=== PATIENT | female | born 1990 | race Caucasian/White ===

== ENCOUNTER 2025-01-19 03:55 | Emergency (ER) | payer OTHER, SELFPAY ==
[2025-01-19 04:01] VITALS: BP 142/87; PULSE 107; RESP 18; TEMP 36.4; O2SAT 100; BMI 21.8
--- NOTE | 2025-01-19 04:39 | PC.NURSE ---
pt complaining of neuro symptoms. cms positive and pedal pulse. Nuero intact, Notified Dr Good.
--- NOTE | 2025-01-19 04:40 | ED_ITS ---
HPI - General Adult General Chief complaint: General Medical Stated complaint: General Medical Time Seen by Provider: 01/19/25 04:40 Source: patient Mode of arrival: wheelchair Limitations: no limitations History of Present Illness ED Provider: Dr. Liya Bowers HPI narrative: Chief he 34-year-old female history of anxiety depression presenting with tremulousness, difficulty breathing and swallowing ongoing for the last 4 months. Admits that tonight she got up to go to use the restroom and noticed that she was having some difficulty swallowing her secretions. Began to panic and hyperventilate. Was seen at the economic development manager and had an endoscopy performed and was told that she probably had eosinophilic esophagitis. Admits that her follow-up appointment is not for another 2 weeks and she is extremely anxious about it. Denies associated fever, chest pain, abdominal pain, bowel changes or urinary complaints. Last menstrual cycle was last week. Had been feeling relatively well prior to this. States that she ran out of her lorazepam which tends to help her anxiety. Related Data Previous Rx's ?Medication ?Instructions ?Recorded Magic Mouthwash 5 ml PO TID PRN throat pain #240 mL 01/19/25 Diphen/Lido/Antacid 1:1:1 240 mL suspension famotidine 40 mg/5 mL (8 mg/mL) 20 mg (2.5 mL) PO BID #100 mL 01/19/25 oral suspension lorazepam 2 mg/mL oral concentrate 1 mg (0.5 mL) PO TI D PRN anxiety 01/19/25 (Lorazepam Intensol) #10 mL Allergies Allergy/AdvReac Type Severity Reaction Status Date / Time amoxicillin Allergy Hives Verified 01/19/25 04:09 Review of Systems 2 Review of Systems: as per HPI, full review of systems performed and negative but for the above mentioned pertinent positives and negatives. PMFSH Social History Social History Smoked in Last 30 Days: No Use of substances other than those prescribed or required for medical reasons: No Advance Directives: No Advance Directives Information Provided: Yes Physical Exam ED Exam Exam: GENERAL: Anxious, tearful. SKIN: Normal skin color for ethnicity, warm, dry, intact, no rashes noted. HEENT: Normocephalic, atraumatic, no stridor, posterior oropharynx nonerythematous, dentition intact, EOMI. NECK: Soft, supple, full ROM, midline structures nontender, no step-offs, no deformities, no lymphadenopathy. CHEST: Heart regular tachycardia, no murmurs, symmetric chest rise and fall, no crepitus. PULMONARY: Clear to auscultation bilaterally, no labored breathing, no wheezes/rhales/ rhonchi. ABDOMINAL: Soft, nondistended, nontender, positive bowel sounds in all quadrants. : Deferred. MUSCULOSKELETAL: Normal tone, full range of motion, no deformities, no peripheral edema. NEURO: Alert and oriented x3, CN II through XII intact, equal strength and sensation bilateral upper and lower extremities, no focal neurologic deficits. PSYCHIATRIC: Anxious affect, tearful, fluid speech, good eye contact and appropriate demeanor. Vital Signs: Vital Signs - 24 hr 01/19/25 04:01 Temperature 97.5 F Pulse Rate 107 H Respiratory Rate 18 Blood Pressure 142/87 H Pulse Oximetry 100 Oxygen Delivery Method Room Air BMI result Body Mass Index 21.8 Medications Administered Discontinued Medications Generic Name Dose Route Start Last Admin Trade Name Freq PRN Reason Stop Dose Admin Diazepam 5 mg 01/19/25 04:49 01/19/25 05:00 Diazepam 10 Mg/2 Ml Cartridge IVPUSH 01/19/25 04:50 5 mg STAT STA Administration Famotidine 20 mg 01/19/25 04:49 01/19/25 05:01 Famotidine/Pf 20 Mg/2 Ml Vial IVPUSH 01/19/25 04:50 20 mg ONCE ONE Administration Lactated Ringer's 1,000 mls @ 999 mls/hr 01/19/25 04:49 01/19/25 06:09 Lr IV 01/19/25 05:49 Infused .Q1H1M ONE Infusion Magnesium Sulfate 2 gm in 50 mls @ 150 mls/hr 01/19/25 05:51 01/19/25 06:31 Magnesium Sulfate/H2o IV 01/19/25 06:10 Infused ONCE ONE Infusion Potassium Chloride 40 meq 01/19/25 05:49 01/19/25 06:09 Potassium Chloride Packet 20 Meq Packet PO 01/19/25 05:50 40 meq ONCE ONE Administration Medical Decision Making Medical Decision Making MDM Narrative: 34-year-old female with history of dysphagia ongoing for the last several months. She has no diagnosis yet but was told that it is probably EOE. Clinically appears well but is very anxious, tearful, crying and I think that this is more anxiety driven than anything. Also probably related to acid reflux and I discussed this with her at length. Her workup today is reassuring. Plan for magic mouthwash, antacids and as planned follow-up with her economic development manager Differential Diagnosis Differential Diagnoses: The differential diagnosis associated with the presentation includes (as above) Admission/Observation Consideration of admission/observation: Escalation of care including admission/observation considered Lab Data MDM Lab Attestation statement: I reviewed the patient's lab results. 01/19/25 04:58 01/19/25 04:58 Labs: Lab Results 01/19/25 Range/Units 04:58 WBC 7.0 (4.8-10.8) X10*3/uL RBC 4.62 (4.20-5.50) X10*6/uL Hgb 14.5 (12.0-16.0) g/dl Hct 39.8 (37.0-47.0) % MCV 86.1 (80.0-98.0) fL MCH 31.4 (27.0-33.0) pg MCHC 36.4 H (31.0-35.0) g/dl RDW 12.4 (11.0-16.0) % Plt Count 287 (160-400) X10*3/uL MPV 9.2 L (9.4-12.3) fL Immature Gran % (Auto) 0.1 (0.0-0.4) % Neut % (Auto) 75.8 H (45-73) % Lymph % (Auto) 15.0 L (20-40) % Callahan % (Auto) 8.3 (2-11) % Eos % (Auto) 0.7 (0-4) % Baso % (Auto) 0.1 (0-2) % Lymph # (Auto) 1.1 L (1.2-4.9) X10*3/uL Callahan # (Auto) 0.6 (0.1-1.2) X10*3/uL Eos # (Auto) 0.1 (0.0-0.4) X10*3/uL Baso # (Auto) 0.0 (0.0-0.2) X10*3/uL Abs Immat Gran (auto) 0.01 (0.00-0.03) X10*3/uL Absolute Neuts (auto) 5.3 (2.0-8.3) x10*3/uL Absolute Nucleated RBC 0.000 (0.0-0.012) X10*3/uL Nucleated RBC % (auto) 0.0 (0.0-0.2) /100WBC Sodium 140 (135-145) mmol/L Potassium 3.1 L (3.3-5.1) mmol/L Chloride 104 (96-108) mmol/L Carbon Dioxide 23 (22-29) mmol/L Anion Gap 16 (12-20) BUN 5 L (9-16) mg/dL Creatinine 0.59 (0.5-1.4) mg/dL Estim Creat Clear Calc 125.7 Estimated GFR > 60 Random Glucose 117 H (60-115) mg/dL Calcium 9.7 (8.4-10.2) mg/dL Magnesium 1.7 (1.6-2.6) mg/dL Total Bilirubin 0.5 (0.0-1.0) mg/dL AST 33 H (5-31) U/L ALT 25 (0-31) U/L Alkaline Phosphatase 73 (39-117) U/L Total Protein 7.8 (6.5-8.0) g/dL Albumin 4.6 (3.5-5.0) g/dL Lipase 38 (8-78) U/L TSH 1.36 (0.32-4.0) uIU/mL Urine Color Yellow Urine Appearance Clear Urine pH 7.0 (5.0-9.0) Ur Specific Half [address] <= 1.005 (1.005-1.025) Urine Protein Negative (Neg-Trace) mg/dL Urine Glucose (UA) Negative (Negative) mg/dL Urine Ketones 15 (Negative) mg/dL Urine Blood Negative (Negative) Urine Nitrite Negative (Negative) Ur Leukocyte Esterase Negative (Negative) Independent Interpretation I performed an independent interpretation of an: EKG Interpretation: My independent interpretation of the ECG reveals normal sinus rhythm with rate of 90, normal axis, normal intervals, no ST elevations or depressions to suggest ischemic changes, no previous for comparison. Independent Historian Clinical information obtained from an independent historian. History obtained from or confirmed by: Friend Prescription Management I considered prescription management with: Pain Medication and Other (magic mouthwash) Social Determinants Patient?s care significantly limited by Social Determinants of Health including: Problems related to primary support group and Other Social Determinant of Health Discharge Plan Discharge Clinical Impression: Hypokalemia, Hypomagnesemia, Decreased oral intake, Esophagitis Patient Disposition: Home, Self-Care Instructions: Potassium Content of Foods List (ED), Hypokalemia (ED), Esophagitis (ED) Additional Instructions: Use famotidine every day for acid reflux. You may also use magic mouthwash to help with the painful swallowing. Use lorazepam for anxiety attacks and feeling like her heart is racing. Make sure to take in plenty of fluids and try to drink electrolyte solutions and milk shakes to keep your potassium and magnesium levels elevated. Return to the ER with any new or worsening symptoms. Continue to follow up with your economic development manager as discussed. Prescriptions: New famotidine 40 mg/5 mL (8 mg/mL) suspension for reconstitution 20 mg PO BID Qty: 100 0RF Magic Mouthwash Diphen/Lido/Antacid 1:1:1 240 mL suspension 5 ml PO TID PRN (Reason: throat pain) Qty: 240 0RF Rx Instructions: Lidocaine Viscous 2 % 80mL; diphenhydramine 12.5 mg/5 mL 80mL; aluminum-mag hydrox-simeth [id number]/5mL 80mL lorazepam [Lorazepam Intensol] 2 mg/mL concentrate 1 mg PO TID PRN (Reason: anxiety) Qty: 10 0RF Interventions: ED Discharge Assessment Last Done: 01/19/25 08:22 Discharge Date/Time: 01/19/25 08:23 Print Language: Pashto
--- NOTE | 2025-01-19 04:51 | ECG_ITS ---
Test Reason : AMS Blood Pressure : */* mmHG Vent. Rate : 90 BPM Atrial Rate : 90 BPM P-R Int : 146 ms QRS Dur : 82 ms QT Int : 360 ms P-R-T Axes : 62 23 7 degrees QTcB Int : 440 ms Normal sinus rhythm Nonspecific ST abnormality Abnormal ECG No previous ECGs available Referred By: Liya Bowers Electronically Signed By: VIRGINIA OLEARY MD
[2025-01-19] MEDS: diazePAM 10 MG/2 ML CARTRIDGE 5 MG IVPUSH (05:00)
[2025-01-19] MEDS: Lactated Ringers 1,000 ML 999 ML IV (05:01)
[2025-01-19 05:02] LABS: MANUAL DIFF FLAG NO
[2025-01-19 05:03] LABS: Hematocrit 39.8 % (37.0-47.0); Hemoglobin 14.5 g/dl (12.0-16.0); Imm Gran Abs Auto 0.01 X10*3/uL (0.00-0.03); Imm Gran Pct Auto 0.1 % (0.0-0.4); Lymphocytes Absolute Auto 1.1 X10*3/uL (1.2-4.9); Mean Corpuscular HGB Conc 36.4 g/dl (31.0-35.0); Mean Corpuscular Hemoglobin 31.4 pg (27.0-33.0); Mean Corpuscular Volume 86.1 fL (80.0-98.0); NRBC Abs Auto 0.000 X10*3/uL (0.0-0.012); NRBC Pct Auto 0.0 /100WBC (0.0-0.2); Platelet Count 287 X10*3/uL (160-400); Red Blood Count 4.62 X10*6/uL (4.20-5.50); White Blood Count 7.0 X10*3/uL (4.8-10.8)
[2025-01-19 05:05] LABS: Appearance Urine Clear; Glucose Urine UA Negative (Negative); PH 7.0 (5.0-9.0); Specific Gravity - Urine <= 1.005 (1.005-1.025)
--- NOTE | 2025-01-19 05:16 | PC.NURSE ---
pt medicated per mar.
[2025-01-19 05:23] LABS: Alanine Aminotransferase 25 U/L (0-31); Albumin Level 4.6 g/dL (3.5-5.0); Alkaline Phosphatase 73 U/L (39-117); Anion Gap 16 (12-20); Aspartate Amino Transferase 33 U/L (5-31); Blood Urea Nitrogen 5 mg/dL (9-16); Calcium 9.7 mg/dL (8.4-10.2); Carbon Dioxide 23 mmol/L (22-29); Chloride 104 mmol/L (96-108); Creatinine Clr Calc Pharmacy 125.7; Estimated Glomerular Filt Rate > 60; Lipase 38 U/L (8-78); Magnesium 1.7 mg/dL (1.6-2.6); Potassium 3.1 mmol/L (3.3-5.1); Sodium 140 mmol/L (135-145); Total Protein 7.8 g/dL (6.5-8.0)
--- OUTSIDE RECORDS SUMMARY | 2025-01-19 05:30 | XMS_ITS ---
Author Name [facility] Organization Unknown Care Team Organization Name Specialty Phone Email Start Date End Da te [facility] Arina [facility] 12/20/2022 024 [facility] Roman Burris [facility] 02/20/202211/13
--- OUTSIDE RECORDS SUMMARY | 2025-01-19 05:30 | XMS_ITS | Clinical Summary ---
Author Organization [facility] [address] [place] [address] [place] [phone] Phone Care Team Providers Care Stereo Equipment Repairer Name Role Phone Arina Stockton MD Primary Care Provider [phone] Allergies Active Allergy Reactions Criticality Noted Date Comments Amoxicillin 05/12/2020 Other Reaction(s): Hives/Urticaria Medications fluticasone propionate (FLONASE) 50 mcg/actuation nasal spray 2 Sprays by Nasal route daily. 4 Active cyclobenzaprine (FLEXERIL) 5 mg tablet Take 1 tablet (5 mg total) by mouth at bedtime as needed for muscle spasms. 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 Overview (04/06/2024): Pedi endo 08/20 - euthyroid, to be rechecked q 6 mos, or prn with sx (last checked 03/23) 12/14 TSH 1.42 Idiopathic scoliosis 10/14/2006 Overview (04/06/2024): 10 deg on xray 11/18[place] [facility] [place] to [place] pain, muscular, resolved 7 deg on xray 01/18 at [facility] Anesthesia consult in - Order placed 07/11 Kept apt- states clear to deliver at [facility] Date Type Department Care Team Description 01/04/2025 Telephone Gastroenterology [facility] [address] [phone] Ortiz Lockwood MD 12/24/2024 7:32 AM EDT Anesthesia Event [facility] Endoscopy [address] [place] [phone] Mp Funk MD 12/24/2024 6:48 AM EDT - 12/24/2024 11:59 PM EDT Hospital Encounter [facility] Endoscopy [address] [place] [phone] Ortiz Lockwood MD Elliott, Barbara J, CRNA Dasilva, John E, MD Dysphagia; Globus sensation Discharge Disposition: Home or Self Care 12/17/2024 12:40 PM EDT Consult Gastroenterology [address] [phone] Ortiz Lockwood MD Esophageal dysphagia (Primary Dx) 12/15/2024 Telephone Gastroenterology [facility] 175 [facility] [address] [phone] Ortiz Lockwood MD 12/07/2024 3:07 PM EDT - 12/07/2024 11:59 PM EDT Hospital Encounter [facility] [address] [place] [address] Paresthesia of right arm Discharge Disposition: Home or Self Care 12/07/2024 3:00 PM EDT - 12/07/2024 11:59 PM EDT Hospital Encounter [facility] [address] [place], [place] [phone] Paresthesia of right arm Discharge Disposition: Home or Self Care 12/07/2024 2:45 PM EDT Office Visit Adult Medicine [address] [phone] Heather Richard PA Globus sensation (Primary Dx); Dysphagia, unspecified type; Paresthesia of right arm 10/22/2024 10:45 AM EDT Office Visit [address] [phone] Heather Richard PA Globus sensation (Primary Dx); Dry mouth; Elevated blood pressure reading from Last 3 Months Immunizations Immunization Administration Dates Next Due DTP 12/21/1994, 2,1990,07/02,1990 [id number] (Pentacel) 2mo to less than 5yo 11/24/1991,1990,1990,05/15 HPV, Quadrivalent 08/28/2007,04/22/2007,02/14/20 07 Hepatitis B Pediatric (Enger ix B; Recombivax HB) to less than 20 yo 03/09/1996,08/20/1995,07/23/1995 Influenza trivalent, 0.5mL, preservative free (Fluarix; FluLaval; Fluzone) ages 6mo and older (Afluria) 3 years and older 01/05/2015,01/03/2010 MMR, measles mumps and rubel la Live (Priorix; M-M-R II) 12mo and older 12/21/1994,11/24/1991 Meningococcal MCV4P 09/11/2005 OPV 12/21/1994, 2,1990,05/15 Td Tetanus diptheria (Tdvax) 7yo and older 09/01/2001 Tdap Tetanus diptheria acell ular pertussis (Boostrix; Adacel) 7yo and older 10/31/2020,03/29/2015,02/13/2007 Surgical History Surgery Date Site/Laterality Comments APPENDECTOMY 05/10/2020 PROCEDURE: LAPAROSCOPIC APPENDECTOMY; COMMENT: no complications Medical History Medical History Date Comments Varicella without mention of complication 03/15/1992 DX:Varicella without mention of complication Unspecified otitis media 06/13/1994 DX:Unsp ecified otitis media Closed fracture of unspecifi ed phalanx or phalanges of hand 07/14/2002 DX:Closed fracture of uns pecified phalanx or phalanges of hand; COMMENT: r 5th finger Unspecified otitis media 06/13/1994 DX:Unsp ecified otitis media H/O Joan thyroiditis DX:H/O Joan thyroiditis GERD (gastroesophageal reflu x disease) Family History Medical History Relation Name Comments Multiple sclerosis Brother 1 Heart attack Father age 54 Other: abnormal pap Mother Colon cancer Neg Hx Ovarian cancer Neg Hx Uterine cancer Neg Hx Relation Name Status Comments Brother 1 Alive Brother 2 Alive Father Maternal Grandfather Maternal Grandmother Alive Mother Alive Paternal Grandfather Alive Paternal Grandmother Alive Sister Alive Social History Tobacco Use Types Packs/Day Years Used Date Smoking Tobacco: Never Smokeless Tobacco: Never Tobacco Cessation:Counseling Given: Not Answered Alcohol Use Standard Drinks/Week Comments No 0 (1 standard drink = 0.6 oz pur e alcohol) Housing Instability Answer Date Recorde d Are you worried that in the next 2 months you may not have stable housing? No 05/28/2024 Food Access & Nutrition Answer Date Rec orded Do you have access to a vari ety of food including fruits and vegetables? Yes 05/28/2024 Access to Healthcare Answer Date Record ed Within the last 3 months, ho w many times did you visit the emergency department for your medical care? 0 05/28/2024 Health Literacy Answer Date Recorded How often do you need to hav e someone help you when you read instructions, pamphlets, or other written material from your doctor or pharmacy? Never 05/28/2024 Caregiver: How often do you need to have someone help you when you read instructions, pamphlets, or other written material from your doctor or pharmacy? Not on file 05/28/2024 Financial Risk Answer Date Recorded How hard is it for you to pa y for the very basics like food, housing, medical care, and air conditioning / heating? Not very hard 05/28/2024 Transportation Answer Date Recorded Has the lack of transportati on kept you from meetings, work, or from getting things needed for daily living? No Has the lack of transportati on kept you from medical appointments or from getting medications? No 05/28/2024 Social Isolation Answer Date Recorded How often do you feel lonely or isolated from ose around you? Never 05/28/2024 Food Risk Answer Date Recorded Within the past 12 months we worried whether our food would run out before we got money to buy more. Never true 05/28/2024 Within the past 12 months th e food we bought just didn't last and we didn't have money to get more. Never true 05/28/2024 Dependent Care Answer Date Recorded Do you need help finding or paying for care for your loved ones. For example, child development assistant or elderly care for an older adult? No 05/28/2024 Education Answer Date Recorded Do you think completing more education or training, like finishing a GED, going to college, or learning a trade, would be helpful for you? N/A 05/28/2024 Employment and Income Answer Date Recor ded During the last four weeks, have you been actively looking for work? Patient declined 05/28/2024 Living Situation Answer Date Recorded What is your living situation? Unrecognized valu e 05/28/2024 Interpersonal Safety Answer Date Record ed Physical Abuse Unrecognized value 12/24/2024 Verbal Abuse Unrecognized value 12/24/2024 Comments No Sex and Gender Information Value Date Recorded Sex Assigned at Female 10/22/2024 1:52 PM EDT Legal Sex Female 7:43 PM EST Gender Identity Female 10/22/2024 1:52 PM EDT Sexual Orientation Straight 10/22/2024 1: 52 PM EDT Obstetrics History Last Filed Vital Signs Vital Sign Reading Time Taken Comments Blood Pressure 113/78 12/24/2024 8:08 AM EDT Pulse 84 12/24/2024 8:08 AM EDT Temperature 36.2 C (97.1 F) 12/24/2024 7:48 AM EDT Respiratory Rate 17 12/24/2024 8:08 AM EDT Oxygen Saturation 98% 12/24/2024 7:48 AM EDT Inhaled Oxygen Concentration - - Weight 66.2 kg (146 lb) 12/24/2024 7:07 AM EDT Height 167.6 cm (5' 6 ) 12/24/2024 7:07 AM EDT Body Mass Index 23.57 12/24/2024 7:07 AM EDT Plan of Treatment Upcoming Encounters Date Type Department Care Team (Late st Contact Info) Description 01/26/2025 10:20 AM EDT Office Visit Gastroenterology [facility] [address] [phone] Ortiz Lockwood MD [address] [address] 01/27/2025 9:00 AM EDT Appointment [facility] Xray [address] [place] [phone] 02/11/2025 1:00 PM EDT Office Visit Adult Medicine [address] [phone] Arina Stockton MD [address] [place] [address] 03/17/2025 11:00 AM EST Consult Gastroenterology [facility] [address] [phone] Ortiz Lockwood MD [address] [address] Health Maintenance Due Date Last Done Comments COVID-19 Vaccine ( season) 2024 Influenza Vaccine (#1) 2024 01/05/2015, 2009 Social Influencers of Health Screening 05/28/2025 05/28/2024 Cervical Cancer Screening: HPV 09/21/2026 09/21/2021 Cholesterol Screening (Lipid Panel) 05/28/2029 05/28/2024, 11/26/2022 DTaP,Tdap,and Td Vaccines (10 - Td or Tdap) 10/31/2030 10/31/2020, 03/29/2015, 02/13/2007, Additional history exists RSV Immunization Adult Patients (1 - 1-dose 75+ series) 2065 HIB Vaccines Completed 11/24/1991, 08/14, 1990, Additional history exists IPV Vaccines Completed 12/21/1994, 11/13, 11/24/1991, Additional history exists MMR Vaccines Completed 12/21/1994, 11/24/1991 Hepatitis B Vaccines Completed 03/09/1996, 08/20/1995, 07/23/1995 Meningococcal ACWY Vaccine Aged Out 09/11/2005 N o longer eligible based on patient's age to complete this topic HPV Vaccines Completed 08/28/2007, 11/2007, 02/13/2007 HIV Screening Completed 06/20/2020 Hepatitis C Screening Completed 06/20/2020 Depression Screening Completed 05/28/2024, 06/26/19 24 Hepatitis A Vaccines Aged Out No long er eligible based on patient's age to complete this topic Meningococcal B Vaccine Aged Out No l onger eligible based on patient's age to complete this topic Pneumococcal Vaccine: Pediatrics (0 to 5 Years) and At-Risk Patients (6 to 49 Years) Aged Out No longer eligible based on patient's age to complete this topic RSV Immunization Patients Under 20 months Aged Out No longer eligible based on patient's age to complete this topic Varicella Vaccines Aged Out No longer eligible based on patient's age to complete this topic Procedures Procedure Name Priority Date/Time Associated Diagnosis Comments EGD Routine 12/24/2024 7:47 AM EDT Dysphagia Globus sensation TISSUE EXAM Routine 12/24/2024 7:42 AM EDT Dysphagia Globus sensation POC PREGANCY, URINE NO CHARGE SCREENING MANUALLY RESULTED Routine 12/24/2024 7:08 AM EDT THYROID STIMULATING HORMONE WITH REFLEX TO FREE T4 AND FREE T3 Routine 12/07/2024 3:41 PM EDT Globus sensation Dysphagia, unspecified type Paresthesia of right arm VITAMIN B12 Routine 12/07/2024 3:41 PM EDT Globus sensation Dysphagia, unspecified type Paresthesia of right arm XR THORACIC SPINE 2 VIEWS Routine 12/07/2024 3:16 PM EDT Paresthesia of right arm XR CERVICAL SPINE 4-5 VIEWS Routine 12/07/2024 3:16 PM EDT Paresthesia of right arm LIPID PANEL WITH REFLEX TO DIRECT LDL Routine 05/28/2024 10:06 AM EST Thyroid nodule 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 Recommendation: - Await pathology results. - Observe patient's clinical course. Narrative 12/24/2024 7:48 AM EDT [facility] GI Patient Name: Roxanne Fitzgerald Procedure Date: 12/24/2024 7:39 AM Date of : 1990 Age: 34 Gender: Female Note Status: Finalized Attending MD: Ortiz Lockwood MD, Procedure Date No Time: 12/24/2024 Procedure: Upper GI endoscopy Indications: Dysphagia Providers: Ortiz Lockwood MD Referring MD: Ortiz Lockwood MD Medicines: Propofol per Anesthesia Complications: No immediate complications. Estimated Blood Loss: Estimated blood loss was minimal. Procedure: Pre-Anesthesia Assessment: - ASA Grade Assessment: I - A normal, healthy patient. After obtaining informed consent, the endoscope was passed under direct vision. Throughout the procedure, the patient's blood pressure, pulse, and oxygen saturations were monitored continuously.The Olympus Gastroscope was introduced through the mouth, and advanced to the second part of duodenum. The upper GI endoscopy was accomplished without difficulty. The patient tolerated the procedure well. Findings: Biopsies were obtained from the proximal and distal esophagus with cold forceps for histology of suspected eosinophilic esophagitis. Estimated blood loss was minimal. Procedure Code(s): --- Professional --- 25647, Esophagogastroduodenoscopy, flexible, transoral; with biopsy, single or multiple Diagnosis Code(s): --- Professional --- R13.10, Dysphagia, unspecified CPT copyright 2020 [employer]. All rights reserved. The codes documented in this report are preliminary and upon medical staff specialist review may be revised to meet current compliance requirements. Ortiz Lockwood MD 12/24/2024 7:48:24 AM This report has been signed electronically.Ortiz Lockwood MD Number of Addenda: 0 Note Initiated On: 12/24/2024 7:39 AM Scope In: Scope Out: Endoscopy Department at [facility] - [address] [place] [phone] Procedure Note Ortiz Lockwood MD - 12/24/2024 [facility] GI Patient Name: Roxanne Fitzgerald Procedure Date: 12/24/2024 7:39 AM Date of : 1990 Age: 34 Gender: Female Note Status: Finalized Attending MD: Ortiz Lockwood MD, Procedure Date No Time: 12/24/2024 Procedure: Upper GI endoscopy Indications: Dysphagia Providers: Ortiz Lockwood MD Referring MD: Ortiz Lockwood MD Medicines: Propofol per Anesthesia Complications: No immediate complications. Estimated Blood Loss: Estimated blood loss was minimal. Procedure: Pre-Anesthesia Assessment: - ASA Grade Assessment: I - A normal, healthypatient. After obtaining informed consent, the endoscope was passed under direct vision. Throughout theprocedure, the patient's blood pressure, pulse, and oxygen saturations were monitored continuously.The Olympus Gastroscope was introduced through the mouth, and advanced to the second part of duodenum. The upperGI endoscopy was accomplished without difficulty. The patient tolerated the procedure well. Findings: Biopsies were obtained from the proximal and distal esophagus with cold forceps for histology ofsuspected eosinophilic esophagitis. Estimated blood loss was minimal. Procedure Code(s): --- Professional --- 37013, Esophagogastroduodenoscopy, flexible, transoral; with biopsy, single or multiple Diagnosis Code(s): --- Professional --- R13.10, Dysphagia, unspecified CPT copyright 2020 [employer]. All rights reserved. The codes documented in this report are preliminary and upon medical staff specialist reviewmay be revised to meet current compliance requirements. Ortiz Lockwood MD 12/24/2024 7:48:24 AM This report has been signed electronically.Ortiz Lockwood MD Number of Addenda: 0 Note Initiated On: 12/24/2024 7:39 AM Scope In: Scope Out: Endoscopy Department at [facility] - [address] [place] [phone] IMPRESSION: - Biopsies were taken with a cold forceps for evaluation of eosinophilic esophagitis. Recommendation: - Await pathology results. - Observe patient's clinical course. Ortiz Lockwood MD GI~PROCEDURE ORDERABLES Final Re sult * Tissue exam (12/24/2024 7:42 AM EDT) Final Diagnosis A. Distal esophagus, biopsy: - Esophageal squamous mucosa with patchy increase in intraepithelial eosinophils (maximum of 24 intraepithelial eosinophils in a high-power field) and mild reactive changes including spongiosis, basilar hyperplasia and elongation of subepithelial vascular papillae. (See note.) B. Mid esophagus, biopsy: - Esophageal squamous mucosa with focal mild basilar hyperplasia; otherwise without diagnostic histopathologic change. - No intraepithelial eosinophils are identified. Note: In these biopsies, the relatively mild reactive epithelial changes and the fact that eosinophils are focally prominent in the distal esophagus but are not identified in the mid-esophagus would favor a diagnosis of gastroesophageal reflux. However, given the high maximum number of intraepithelial eosinophils (24 in a high power field), and the fact that the distribution of eosinophils can be quite variable, it is difficult to fully exclude the possibility of eosinophilic esophagitis. Other potential causes of increased intraepithelial eosinophils, such as pill esophagitis, medication and other hypersensitivity/a llergic reactions and connective tissue or autoimmune disorders could also be considered. Correlation with clinical and endoscopic findings is recommended. 12/25/2024 10:49 AM EDT [facility] Gross Description A. Esophagus, distal biopsies: Labeled esophagus distal . Received in formalin are two irregular pink-white mucosal tissue fragments, each measuring approximately 0.2 cm in greatest dimension, which are wrapped in paper and submitted in toto in one cassette, two pieces, multiple levels on one slide. B. Esophagus, mid biopsies: Labeled esophagus mid . Received in formalin are two irregular pink-white mucosal tissue fragments, each measuring approximately 0.3 cm in greatest dimension, which are wrapped in paper and submitted in toto in one cassette, two pieces, multiple levels on one slide. CARLIN 12/25/2024 10:49 AM EDT [facility] Disclaimer Unless otherwise specified, all tissue is 10% NB formalin fixed and paraffin embedded. 12/25/2024 10:49 AM EDT [facility] Tissue Esophageal structure / Unknown 12/24/2024 7:42 AM EDT 12/24/2024 11:27 AM EDT Tissue specimen (specimen) Esophageal structure / Unknown 12/24/2024 7:43 AM EDT 12/24/2024 11:27 AM EDT us Ortiz Lockwood MD LAB PATHOLOGY ORDERABLES Final R esult [facility] [address] [place] [address], * POC , urine NO CHARGE screening manually resulted (12/24/2024 7:08 AM EDT) [facility] HCG, Ur POC Negative Negative POC hCG Int QC Pass? Yes Yes Urine Urine specimen obtained by clean catch procedure / Unknown 12/24/2024 7:08 AM EDT Mp Funk MD POINT OF CARE TEST ENTER/EDIT ORDERABLES Final Result * Thyroid stimulating hormone with reflex to free t4 and free t3 (12/07/2024 3:41 PM EDT) [facility] TSH 1.21 0.40 - 4.00 mcIU/mL LAB CHEMISTRY METHOD 12/07/2024 7:06 PM EDT [facility] Blood Venous blood specimen / Unknown Venipuncture / Unknown 12/07/2024 3:41 PM EDT 12/07/2024 3:41 PM EDT Heather ALLISON LAB BLOOD ORDERABLES Fin al Result Performing Organization Address City/[facility]/ZIP Co de Phone Number [facility] [address] [place] [address], [place] [phone] * (ABNORMAL) Vitamin B12 (12/07/2024 3:41 PM EDT) [facility] Vitamin B-12 929(H) 250 - 900 pcg/mL LAB CHEMISTRY METHOD 12/07/2024 6:55 PM EDT [facility] Blood Venous blood specimen / Unknown Venipuncture / Unknown 12/07/2024 3:41 PM EDT 12/07/2024 3:41 PM EDT Heather ALLISON LAB BLOOD ORDERABLES Fin al Result [facility] [address] [place] [address], [place] [phone] * XR Thoracic Spine 2 Views (12/07/2024 3:16 PM EDT) Anatomical Region Laterality Modality Spine, T-spine Radiographic Nolvia ging 12/07/2024 9:36 PM EDT Impressions 12/07/2024 9:39 PM EDT Mild degenerative changes. POS - [id number] -------- FINAL REPORT -------- Dictated By: Melissa Manning Dictated Date: 12/07/2024 21:36 ET Assigned Physician: Melissa Manning Reviewed and Electronically Signed By: Melissa Manning Signed Date: 12/07/2024 21:39 ET Workstation ID: [id number] Transcribed By: Self Edit Transcribed Date: 12/07/2024 21:36 ET Narrative 12/07/2024 9:39 PM EDT EXAM: Thoracic spine x-ray HISTORY: Right arm radiculopathy-paresthesia. COMPARISON: None, correlation with chest radiography 06/26/2023 FINDINGS: AP and lateral views performed. Suboptimal visualization of T1. Otherwise, no new compression deformities. Multilevel endplate spurring in the mid and lower spine. Multilevel minimal/mild disc space narrowing. No subluxation apparent. Pedicles are intact. Procedure Note Melissa Manning MD - 12/07/2024 EXAM: Thoracic spine x-ray HISTORY: Right arm radiculopathy-paresthesia. COMPARISON: None, correlation with chest radiography 06/26/2023 FINDINGS: AP and lateral views performed. Suboptimal visualization of T1. Otherwise, no new compression deformities.Multilevel endplate spurring in the mid and lower spine. Multilevelminimal/mild disc space narrowing. No subluxation apparent. Pedicles areintact. IMPRESSION: Mild degenerative changes. POS - [id number] -------- FINAL REPORT -------- Dictated By: Melissa Manning Dictated Date: 12/07/2024 21:36 ET Assigned Physician: Melissa Manning Reviewed and Electronically Signed By: Melissa Manning Signed Date: 12/07/2024 21:39 ET Workstation ID: [id number] Transcribed By: Self Edit Transcribed Date: 12/07/2024 21:36 ET Heather Jessica Kristopher Richard [facility] IMG XR PROCEDURES Final Result * XR Cervical Spine 4-5 Views (12/07/2024 3:16 PM EDT) Anatomical Region Laterality Modality Spine, C-spine Radiographic Nolvia ging 12/07/2024 7:55 PM EDT Impressions 12/07/2024 8:01 PM EDT Mild degenerative changes. Reversal of the normal cervical lordosis which can be positional or secondary to muscle spasm. POS - [id number] - -------- FINAL REPORT -------- Dictated By: Melissa Manning Dictated Date: 12/07/2024 19:55 ET Assigned Physician: Melissa Manning Reviewed and Electronically Signed By: Melissa Manning Signed Date: 12/07/2024 20:01 ET Workstation ID: [id number] Transcribed By: Self Edit Transcribed Date: 12/07/2024 19:55 ET Narrative 12/07/2024 8:01 PM EDT EXAM: Cervical spine x-ray HISTORY: Right arm radiculopathy. Paresthesia of right arm. No known trauma. COMPARISON: None FINDINGS: 4 views performed. Cervical spine is visualized through C7 on the lateral projection. No compression deformities. Reversal of the normal cervical lordosis. Mild disc space narrowing at C5-6 and minimal at C3-4 and C4-5. Multilevel uncovertebral spurring. On the right, neural foraminal encroachment at C3-4 through C5-6. On the left, neural foraminal encroachment at C3-4 and C5-6. Atlantoaxial distance is within normal limits. No abnormal thickening of the prevertebral soft tissues. Procedure Note Melissa Manning MD - 12/07/2024 EXAM: Cervical spine x-ray HISTORY: Right arm radiculopathy. Paresthesia of right arm. No knowntrauma. COMPARISON: None FINDINGS: 4 views performed. Cervical spine is visualized through C7 on the lateral projection. Nocompression deformities. Reversal of the normal cervical lordosis. Mild disc space narrowing at C5-6 and minimal at C3-4 and C4-5. Multileveluncovertebral spurring. On the right, neural foraminal encroachment at C3-4 through C5-6. On theleft, neural foraminal encroachment at C3-4 and C5-6. Atlantoaxial distance is within normal limits. No abnormal thickening ofthe prevertebral soft tissues. IMPRESSION: Mild degenerative changes. Reversal of the normal cervical lordosis whichcan be positional or secondary to muscle spasm. POS - [id number] - -------- FINAL REPORT -------- Dictated By: Melissa Manning Dictated Date: 12/07/2024 19:55 ET Assigned Physician: Melissa Manning Reviewed and Electronically Signed By: Melissa Manning Signed Date: 12/07/2024 20:01 ET Workstation ID: [id number] Transcribed By: Self Edit Transcribed Date: 12/07/2024 19:55 ET [facility] SD IMG XR PROCEDURES Final Result * Lipid panel with reflex to direct LDL (05/28/2024 10:06 AM EST) Cholesterol 164 0 - 200 mg/dL LAB CHEMISTRY METHOD 05/28/2024 12:24 PM [facility] Triglycerides 97 0 - 150 mg/dL LAB CHEMISTRY METHOD 05/28/2024 12:24 PM [facility] HDL 50 >=40 mg/dL LAB CHEMISTRY METHOD 05/28/2024 12:24 PM [facility] LDL Calculated 95 0 - 100 mg/dL LAB CHEMISTRY METHOD 05/28/2024 12:24 PM [facility] VLDL Cholesterol Bon 19.4 mg/dL LAB CHEMISTRY METHOD 05/28/2024 12:24 PM [facility] Non HDL Chol. (LDL+VLDL) 114 <145 mg/dL LAB CHEMISTRY METHOD 05/28/2024 12:24 PM [facility] Chol/HDL Ratio 3.3 0.0 - 4.4 LAB CHEMISTRY METHOD 05/28/2024 12:24 PM EST [facility] Blood Venous blood specimen / Unknown Venipuncture / Unknown 05/28/2024 10:06 AM EST 05/28/2024 10:06 AM EST Heather ALLISON LAB BLOOD ORDERABLES Fin al Result [facility] [address] [place] [address], * Depression Screening (06/26/2023) Pathologist [facility] Depression Screening abstracted Historical Provider HEALTH MAINTENANCE Final Result * Cervical Cancer Screening: HPV (09/21/2021) [facility] Cervical Cancer Screening: HPV negative, abstracted Historical Provider HEALTH MAINTENANCE Final Result * HIV Screening (06/20/2020) [facility] HIV Screening abstracted Historical Provider HEALTH MAINTENANCE Final Result * Hepatitis C Screening (06/20/2020) [facility] Hepatitis C Screening abstracted Historical Provider HEALTH MAINTENANCE Final Result from Last 3 Months or Most Recently Relevant to Health Maintenance Insurance [facility] [employer] Care Teams [employer] Equipment [employer]r Relationship Specialty Start Date End Date Arina Stockton MD [address] [place] [id number] PCP - General 11/23/22
--- NOTE | 2025-01-19 05:35 | PC.NURSE ---
pt oob with a steady gait, no tremors noted at this time.
[2025-01-19] MEDS: Potassium Chloride Packet 20 MEQ PACKET 40 MEQ PO (06:09)
[2025-01-19] MEDS: Magnesium Sulfate/H2O 2 GM/50 ML PIGGYBACK IV (06:09)
--- NOTE | 2025-01-19 06:13 | PC.NURSE ---
Medicated per mar.
--- NOTE | 2025-01-19 06:56 | PC.NURSE ---
pt still working on PO Potassium drink. Report given to ZOHAIB Smith
[2025-01-19 07:10] VITALS: BP 114/73; PULSE 83; RESP 17; TEMP 36.5; O2SAT 99
--- NOTE | 2025-01-19 07:12 | PC.NURSE ---
Assumed care of patient. Pt ambulated to bathroom without difficulty, sts she is feeling better and no longer having tremors or other symptoms. Pt denies CP, SOB, or any other pain. RR even and unlabored. Pt still working on finishing drinking her potassium.
[2025-01-19 08:22] VITALS: BP 114/73; PULSE 83; RESP 17; TEMP 36.5; O2SAT 99
== END 2025-01-19 08:23 | disposition home or self-care (01) ==
PROVIDERS: Emergency Provider Emergency Medicine
DX: E87.6 Hypokalemia (principal); E83.42 Hypomagnesemia; K20.90 Esophagitis, unspecified without bleeding; R06.02 Shortness of breath; R94.31 Abnormal electrocardiogram [ECG] [EKG]; R13.10 Dysphagia, unspecified; R11.0 Nausea; Z79.899 Other long term (current) drug therapy
CPT/HCPCS: 36415; 80053; 81003; 83690; 83735; 84443; 85025; 93005; 96361; 96365; 96375; 99284; 99285; J1308; J3360; J3475; J7120

== ENCOUNTER → 2025-01-19 04:51 | Outpatient (BNV) | payer OTHER, SELFPAY | PROVIDERS: Emergency Provider Emergency Medicine; Visit Provider Internal Medicine Cardiovascular Disease | DX: R94.31 Abnormal electrocardiogram [ECG] [EKG] (principal); R41.82 Altered mental status, unspecified | CPT/HCPCS: 93010 ==